=== PATIENT | female | born 1955 | race Caucasian/White ===

== ENCOUNTER → 2019-04-29 | Outpatient (CLI) | payer BC ==
--- NOTE | 2019-04-30 17:30 | RAD ---
DATE: 04/29/2019 EXAM: MAMMO RISHI SCREENING BILATERAL HISTORY: Routine screening COMPARISON: None This study was interpreted with the benefit of Computerized Aided Detection (CAD). Breast Density: HETERO The breast parenchyma is heterogenously dense, which could reduce sensitivity of mammography. Breast parenchyma level C. FINDINGS: No suspicious calcifications or distortion. A left subareolar mass is suspected measuring up to 1.1 cm diameter. It is well-circumscribed. No suspicious calcifications. Focal asymmetry of the right upper-outer breast is present. This probably represents glandular tissue. IMPRESSION: Ultrasound evaluation recommended for the right upper-outer breast and left subareolar region. BI-RADS CATEGORY: 0 INCOMPLETE: NEEDS ADDITIONAL IMAGING EVALUATION AND/OR PRIOR MAMMOGRAMS FOR COMPARISON. Ultrasound bilaterally recommended. RECOMMENDED FOLLOW-UP: ADD ADDITIONAL IMAGING PQRS compliance statement: Patient information was entered into a reminder system with a target due date for the next mammogram. Mammography is a sensitive method for finding small breast cancers, but it does not detect them all and is not a substitute for careful clinical examination. A negative mammogram does not negate a clinically suspicious finding and should not result in delay in biopsying a clinically suspicious abnormality. "Our facility is accredited by the [employer] Mammography Program."
== END | disposition home or self-care (01) ==
LOC: MAMMO 11:21
PROVIDERS: ATTEND Family Medicine
DX: Z12.31 Encounter for screening mammogram for malignant neoplasm of breast (principal); N64.89 Other specified disorders of breast
CPT/HCPCS: 77063; 77067

== ENCOUNTER → 2019-05-01 | Outpatient (CLI) | payer BC ==
--- NOTE | 2019-05-01 11:40 | RAD ---
Examination: BREAST BILATERAL History: Abnormal mammogram Comparison/Correlation: 04/29/2019 screening mammographic exam Findings: Ultrasound imaging of the right breast from 9:00 to 12:00 region was performed. Glandular tissue is notable. No mass or cyst. Ultrasound imaging of the left breast in the 3:00 subareolar region was performed. There is a hypoechoic nodule measuring 0.37 cm x 0.33 cm tall by 0.3 cm noted. There is no flow within it. Margins are well-circumscribed and slightly irregular in appearance. Impression: BI-RADS Category 4-suspicious for malignancy. Biopsy of the left subareolar mass by ultrasound guidance should be considered. On 05/01/2019 at 11:36 AM, results were reported to Danny who is a PA in the referring physician's office. Electronically signed by: Jaquan Lozano MD (05/01/2019 11:37 AM) [facility]
== END | disposition home or self-care (01) ==
LOC: US 09:38
PROVIDERS: ATTEND Family Medicine
DX: N63.32 Unspecified lump in axillary tail of the left breast (principal); R92.8 Other abnormal and inconclusive findings on diagnostic imaging of breast
CPT/HCPCS: 76641

== ENCOUNTER → 2019-05-01 | Outpatient (CLI) | payer BC ==
--- NOTE | 2019-05-02 13:53 | RAD ---
MR#: [id number] Date of Study: 05/01/2019 Ordering Physician: GALO GUY, Referring Physician: GALO GUY, Tech: Miriam Carrillo, TYRELL, RVT, RTR APPROVED REPORT Patient Location: OUT-PATIENT Indications Abdominal Bruit Risk Factors PAD Hypertension Grayscale images of the abdominal aorta demonstrate moderate diffuse plaque. There is si gnificant velocity acceleration at the level of the mid abdominal aorta suggestive of a greater than 75% stenosis. There is no obvious aneurysm noted. Duplex Results A/PTransverseLongitudinal Mid Aorta 2.4cm2.1cm2.6cm Distal Aorta 2.6cm1.9cm2.6cm Doppler VelocityWaveform Aorta Mid. 80.4 cm/sec Distal Aorta 569.2 cm/sec Rt. Common Iliac Uqupjl18.5 cm/sec Lt. Common Iliac Artery 95.7 cm/sec Critical Notification Critical Value: Yes Physician Notified <Conclusion> 1. Probable greater than 75% stenosis of the distal abdominal aorta 2. Plan for CT angiography with runoff Signed by : Galo Guy, Electronically Approved : 05/02/2019 09:10:30
--- NOTE | 2019-05-02 14:58 | RAD ---
MR#: [id number] Date of Study: 05/01/2019 Ordering Physician: GALO GUY, Referring Physician: GALO GUY, Tech: Miriam Carrillo, TYRELL, RVT, RTR APPROVED REPORT Patient Location: OUT-PATIENT Indications Uncontrolled HTN Abdominal Bruit Grayscale images of the bilateral kidneys are grossly unremarkable. Spectral waveforms and color Doppler of the proximal mid and distal renal arteries are within normal limits. Renal to aortic ratios are grossly within normal limits. Renal Artery Doppler Right Renal Artery Left Renal Arter y Proximal 138.5/20.4 cm/secProximal 131.3/31.6 cm/sec Mid 132.3/16.3 cm/secMid 77.6/26.1 cm/sec Distal 143.5/45.8 cm/secDistal 80.8/24.2 cm/sec Renal/Aorta Ratio 0.00Renal/Aorta Ratio 0.96 Rt. Segmental A. 30.8/10.1 cm/secLt. Segmental A. 34.1/12.5 cm/sec Renal Measurements RightLeft Kidney Eggbeu79.33 cm 4.05 cmKidney Cqphhc57.53 cm 4.86 cm Right Additional FindingsLeft Additional Findings Critical Notification Critical Value: No <Conclusion> 1. No signfiicant renal artery stenosis. Signed by : Galo Guy, Electronically Approved : 05/02/2019 14:57:41
--- NOTE | 2019-05-02 15:00 | RAD ---
MR#: [id number] Date of Study: 05/01/2019 Ordering Physician: GALO GUY, Referring Physician: GALO GUY, Tech: Miriam Carrillo, TYRELL, RVT, RTR APPROVED REPORT Patient Location: OUT-PATIENT Laterality:Bilateral Indications Dizziness and Vertigo HTN Risk Factors Grayscale images of the bilateral carotid vessels demonstrates mild intimal hyperplasia. On the right side there is likely occlusion of the mid and distal internal carotid artery. The verteb ral velocities are antegrade. No significant external carotid disease is noted. On the left side there is likely greater than 70% stenosis involving the proximal internal carotid ar matthew. There is some tortuosity to the vessel at the level of interrogation and this may partially con tributed to the elevated velocities. The ICA to CCA ratio is elevated on the left side. The vertebral velocity is antegrade. Doppler Spectral Velocity Analysis Right Left pCCA 58/10 cm/spCCA 89/27 cm/s mCCA 60/14 cm/smCCA 81/33 cm/s dCCA 54/16 cm/sdCCA 70/23 cm/s Bulb 42/11 cm/sBulb 104/36 cm/s ECA 112/24 cm/sECA 95/19 cm/s pICA 50/10 cm/spICA 253/68 cm/s Coleen Coleen 142/56 cm/s dICA dICA 90/34 cm/s Vert. 46/18 cm/sVert. 44/17 cm/s ICA/CCA 0.84ICA/CCA 3.13 Critical Notification Critical Value: Yes Physician Notified <Conclusion> 1. Probable occlusion of the right ICA and greater than 70% stenosis of the left ICA. Signed by : Galo Guy, Electronically Approved : 05/02/2019 14:59:47
== END | disposition home or self-care (01) ==
LOC: US 09:05
PROVIDERS: ATTEND Internal Medicine Cardiovascular Disease
DX: I77.3 Arterial fibromuscular dysplasia (principal); I10 Essential (primary) hypertension
CPT/HCPCS: 76770; 93880; 93975

== ENCOUNTER → 2019-05-19 | Outpatient (CLI) | payer BC ==
[~2019-05-19] MED LIST: IOHEXOL 350 MG/ML 100 ML VIAL. IV ONE
--- NOTE | 2019-05-20 10:29 | RAD ---
Examination: CT ANGIO ABD ILEO/FEMOR RUNOFF History: Aortic stenosis Comparison/Correlation: None Findings: Axial images of the abdomen, pelvis, and lower extremities were obtained following IV contrast according to arteriography protocol. Sagittal and coronal reformatted images were provided. Maximum intensity projection images were provided. Minimal linear atelectasis involving the lingula is evident. Moderate size hiatal hernia is present. Spleen, pancreas, adrenal glands, and gallbladder fossa are unremarkable on arterial phase images provided. Left renal inferior pole scarring is suggested. Kidneys are otherwise unremarkable. The liver is mildly enlarged with length 18.8 cm. Calcific involvement of the celiac artery origin is present without significant stenosis. 50 percent stenosis of the superior mesenteric artery is evident at its origin and proximal 0.4 cm extent. Inferior mesenteric artery opacifies with contrast. A very short segment of high-grade stenosis of the very proximal aspect suspected. Less than 50 percent stenosis of the right superior main renal arteries present. Less than 50 percent stenosis of the more inferior right renal artery is also present. Less than 50 percent stenosis of the single left main renal artery origin noted. Atherocalcific involvement of the distal infrarenal abdominal aorta is identified for a length of 2.5 cm. Linear densities which may represent focal dissection flaps or possibly plaque within this region are noted. Luminal narrowing due to the anterolisthesis may represent focal dissection flaps at this level with diameter up to 0.2 cm anteroposterior is evident at this level. The aortic bifurcation and iliac arteries are widely patent. There is minimal scattered atherosclerotic calcification involvement without luminal narrowing. Common femoral arteries, superficial femoral arteries, deep femoral arteries, popliteal arteries and arteries of the distal lower extremities to the proximal hindfoot region opacify with contrast and are patent without significant stenoses. Evaluation of the knee right popliteal artery is however limited due to streak artifact as a result of a right knee joint prosthesis. Incidental note is made of moderate L4-5 and L5-S1 disc space narrowing. Left supra-acetabular bone island appears to be present. Impression: Narrowing of the infrarenal abdominal aortic lumen distally is noted which may be due to focal atheromatous involvement or focal dissection flaps is noted for a short segment. High-grade stenosis involving the right proximal inferior mesenteric artery suspected. Approximately 50 percent stenosis of the superior mesenteric artery proximally is noted. Hiatal hernia. Excellent opacification of the visualized lower extremity arterial vasculature without significant stenosis. Electronically signed by: Jaquan Lozano MD (05/20/2019 10:26 AM) [facility]
== END | disposition home or self-care (01) ==
LOC: CT 09:06
PROVIDERS: ATTEND Internal Medicine Cardiovascular Disease
DX: I77.1 Stricture of artery (principal); M48.07 Spinal stenosis, lumbosacral region; I73.9 Peripheral vascular disease, unspecified
CPT/HCPCS: 75635; Q9967

== ENCOUNTER → 2020-04-15 | Outpatient (CLI) | payer BC ==
[2020-04-15] MEDS: IOHEXOL 350 MG/ML 100 ML VIAL. IV ONE (08:40)
--- NOTE | 2020-04-15 12:25 | RAD ---
PROCEDURE: CT ANGIOGRAPHY ABDOMEN INDICATION: Reason: AORTIC DISSECTION / Spl. Instructions: / History: . TECHNIQUE: The abdomen was scanned using spiral technique prior to and following intravenous contrast enhancement. Source images are evaluated in addition to 3-D angiographic reconstructions performed on an independent workstation. All CT scans performed at this facility utilize dose reduction techniques as appropriate to the exam, including the following: Automatic Exposure Control and adjustment of the mA and/or kV according to patient size (this includes techniques or standardized protocols for targeted exams). CONTRAST: Administered COMPARISON: 05/19/2019 FINDINGS: Previously reported 2.5 cm long dissection flap in the mid abdominal aorta (best illustrated on sagittal image 64 series 7, images 51 and 52 of axial series 4, and coronal image 71 of series 6) is again evident below the renal arteries (of which there are 2 right renal arteries and a single left renal artery). This is unchanged in the interval with no evidence of an aortic aneurysm. The true luminal diameter measures 0.3 cm. No interval increase in diameter of the outer wall abdominal aorta which measures 1.3 cm. No periaortic soft tissue stranding or fluid. Bilateral common iliacs and imaged external and internal iliac arteries are widely patent. Nonvascular findings include a moderate size hiatal hernia, mildly enlarged liver measuring 18.5 cm craniocaudal extent, and findings of bilateral renal cortical scarring. IMPRESSION: Stable infrarenal abdominal aortic focal dissection without evidence of leak, aneurysm development, or progression in the dissection flap. Electronically signed by: Kierra Joyner MD (04/15/2020 12:22 PM) [id number]
== END | disposition home or self-care (01) ==
LOC: CT 08:20
PROVIDERS: ATTEND Internal Medicine Cardiovascular Disease
DX: I71.02 Dissection of abdominal aorta (principal)
CPT/HCPCS: 74175; Q9967

== ENCOUNTER → 2020-05-05 | Outpatient (CLI) | payer BC ==
--- NOTE | 2020-05-05 17:26 | RAD ---
BILATERAL SCREENING MAMMOGRAM History: Routine screening. Comparison: 04/29/2019. Technique: Routine bilateral digital mammogram views were obtained. Findings: Breast Tissue Density C : The breasts are heterogeneously dense, which may obscure small masses. There are no dominant masses, suspicious microcalcifications, or architectural distortion. Biopsy clip marker involves the anterior left breast. IMPRESSION: No mammographic evidence of malignancy. Recommend routine screening. BI-RADS category 1: Negative. The images were reviewed with computer aided detection. Patient information is entered into the reminder system with a target due date for the next screening mammogram. Mammography is the most sensitive method for finding small breast cancers, but it does not detect them all and is not a substitute for careful clinical examination. A negative mammogram does not negate a clinically suspicious finding and should not result in delay in biopsying a clinically suspicious abnormality. "Our facility is accredited by the [employer] Mammography Program." Electronically signed by: Jaquan Lozano MD (05/05/2020 5:23 PM) [id number]
== END | disposition home or self-care (01) ==
LOC: MAMMO 13:51
PROVIDERS: ATTEND Family Medicine
DX: Z12.31 Encounter for screening mammogram for malignant neoplasm of breast (principal)
CPT/HCPCS: 77067

== ENCOUNTER → 2020-10-28 | Outpatient (CLI) | payer BC ==
--- NOTE | 2020-10-28 13:59 | RAD ---
MR#: [id number] Date of Study: 10/28/2020 Ordering Physician: GALO GUY, Referring Physician: NAUN HSU Tech: ASHWIN Melvin APPROVED REPORT Test Type: Exercise Stress Nurse/Tech: ASHWIN Melivn Test Indications: PAD HTN Cardiac History: none Medications: see EHR Medical History: see EHR Resting ECG: SR with PVCs Resting Heart Rate: 68 bpm Resting Blood Pressure: 173/80mmHg Pretest Chest Pain: None Nurse/Tech Notes Consent: The procedure was explained to the patient in lay terms. Informed consent was witnessed. Mahesh eout was entered into [employer]. History and Stress Test performed by ASHWIN Melvin POST EXERCISE Reason for Termination: Fatigue Target HR: 133 Max HR: 171 bpm 128% of Maximum Predicted HR: bpm Exercise duration: 5 min:sec, Stage Exercise capacity: 7METs Max Blood Pressure: 208/71mmHg Blood Pressure response to exercise: Normal blood pressure response during stress. Chest Pain: No. Arrhythmia: No. ST Change: No. INTERPRETATION Stress EKG Conclusion: Baseline EKG showed sinus rhythm. No ischemic changes at peak stress. No arr hythmias. Imaging Protocol IMAGE PROTOCOL: Rest Tc-99m/stress Tc-99m 1 day Rest: Stress: Viability: Radiopharm.Tc99m LvbwyqgclPj60j Sestamibi Vrsn34qBm 33mCi Duration 15min. 10min. Img Date 10/28/2020 10/28/2020 Inj-Img Lrur88ech. 60min. Rest Admin Site:IV - Right WristAdministrator: ASHWIN Melvin Stress Admin Site: IV - Right WristAdministrator: ASHWIN Melvin STRESS DATA End Diast. Vol.66.0mlAv. Heart Rate95.0bpm End Syst. Vol.11.0mlCO Index BSA0.0L/min Myocardial Jsfo706.0gEject. Ypwlivmv20.0% Stress Rates Pk. Fill Rate2.84EDV/secLVtime Pk. Fill 105.78msec Pk. Empty Rate4.85ESV/secLVtime Pk. Tcgsi985.13msec 1/3 Pk. Fill1.59EDV/sec Stress Scores Regional WT1.00Summed WT3.00 Regional WM0.00Summed WM0.00 Study quality was good. Left Ventricular size was Normal at Rest and Stress. Lung uptake was . Left Ventricular ejection fraction is 83%. The rest and stress images show normal perfusion, normal contraction and thickening. LV Perf. Quant 17 Seg. SSS0.00 17 Seg. SRS0.00 17 Seg. SDS0.00 Stress Defect Extent (% LAD)0.00Rest Defect Extent (% LAD)0.00Rev. Defect Extent (% LAD)0.00 Stress Defect Extent (% LCX) 0.00Rest Defect Extent (% LCX)0.00Rev. Defect Extent (% LCX)0.00 Stress Defect Extent (% RCA)0.00Rest Defect Extent (% RCA)0.00Rev. Defect Extent (% RCA)0.00 Stress Defect Extent (% CHELSEY)0.00Rest Defect Extent (% CHELSEY)0.00Rev. Defect Extent (% CHELSEY)0.00 Conclusion 1. Treadmill exercise cardioisotope stress test did not show any evidence of ischemia or infarct. 2. Normal left ventricular systolic function with ejection fraction calculated at 83%. 3. Low risk for cardiac events. Signed by : Que Tobin, Electronically Approved : 10/28/2020 13:59:23
== END ==
LOC: NM 08:06
PROVIDERS: ATTEND Internal Medicine Cardiovascular Disease
DX: Z01.810 Encounter for preprocedural cardiovascular examination (principal)
CPT/HCPCS: 78452; 93017; A9500; 96376

== ENCOUNTER → 2020-11-01 | Outpatient (CLI) | payer BC ==
--- NOTE | 2020-11-01 13:16 | RAD ---
MR#: [id number] Date of Study: 11/01/2020 Ordering Physician: GALO ATKINSON, Referring Physician: GALO ATKINSON, Tech: Kayla Rao RVT,MS APPROVED REPORT Patient Location: OUT-PATIENT Laterality:Bilateral Indications Carotid stenosis Risk Factors Hypertension: Grayscale images of the bilateral carotid vessels demonstrates moderate diffuse atherosclerotic plaqu e on the left and significant heavy plaque burden on the right. On the right side the mid internal carotid artery is occluded. The vertebral artery demonstrates ant egrade flow. The external carotid artery appears to be patent with normal velocities. On the left v elocities are notable for moderate 50 to 69% stenosis involving the proximal and mid internal carotid artery. The ICA to CCA ratios are within normal limits. The left vertebral velocity is antegrade. Doppler Spectral Velocity Analysis Right Left pCCA 60/14 cm/spCCA 71/25 cm/s mCCA 57/14 cm/smCCA 66/26 cm/s dCCA 45/12 cm/sdCCA 99/38 cm/s Bulb Bulb 83/33 cm/s ECA 114/27 cm/sECA 124/24 cm/s pICA 45/5 cm/spICA 143/52 cm/s Coleen Coleen 141/46 cm/s dICA dICA 99/39 cm/s Vert. 69/26 cm/sVert. 64/25 cm/s ICA/CCA ICA/CCA 2.01 Critical Notification Critical Value: No <Conclusion> 1. Occluded right internal carotid artery, moderate left internal carotid artery stenosis. Signed by : Galo Atkinson, Electronically Approved : 11/01/2020 13:16:38
--- NOTE | 2020-11-02 11:00 | CARD ---
MR#: [id number] Date of Study: 11/01/2020 Ordering Physician: GALO ATKINSON, Referring Physician: GALO ATKINSON, Tech: Miriam Sena, [facility] APPROVED REPORT EXAM: Two-dimensional and M-mode echocardiogram with Doppler and color Doppler. Other Information Quality : AverageHR: 75bpm INDICATION Pre-Op RISK FACTORS Hypertension Hyperlipidemia 2D DIMENSIONS Left Atrium(2D)2.9 (1.6-4.0cm)IVSd0.9 (0.7-1.1cm) Aortic Root(2D)3.0 (2.0-3.7cm)LVDd4.1 (3.9-5.9cm) LVOT Diameter2.0 (1.8-2.4cm)PWd0.9 (0.7-1.1cm) LVDs3.0 (2.5-4.0cm)FS (%) 25.8 % SV37.6 mlLVEF(%)51.2 (>50%) Aortic Valve AoV Peak Salo.146.5cm/sAoV VTI27.4cm AO Peak GR.8.6mmHgLVOT Peak Salo.105.1cm/s LVOT VTI 20.96cmAO Mean GR.5mmHg TEMO (VMAX)2.29qm0WDB (VTI)2.38cm2 Mitral Valve MV E Vtjksocj64.8cm/sMV DECEL BVXO212ze MV A Bvjguwxj908.4cm/sE/A Ratio0.6 Pulmonary Valve PV Peak Afmewxce66.9cm/sPV Peak Grad.2mmHg Tricuspid Valve TR P. Kiwauvhc766sl/sRAP YKFERZNT7leRh TR Peak Gr.24mmHg Pulmonary Vein S1 Wydoqveb84.5cm/sD2 Rhsukxav56.7cm/s LEFT VENTRICLE The left ventricle is normal size. There is normal left ventricular wall thickness. The left ventricu lar systolic function is normal and the ejection fraction is within normal range. The Ejection Fracti on is 50-55%. There is normal LV segmental wall motion. Transmitral Doppler flow pattern is Grade I-a bnormal relaxation pattern. RIGHT VENTRICLE The right ventricle is normal size. There is normal right ventricular wall thickness. The right ventr icular systolic function is normal. ATRIA The left atrium size is normal. The right atrium size is normal. The interatrial septum is intact wit h no evidence for an atrial septal defect or patent foramen ovale as noted on 2-D or Doppler imaging. AORTIC VALVE The aortic valve is normal in structure and function. Doppler and Color Flow revealed no significant aortic regurgitation. There is no significant aortic valvular stenosis. Calculated aortic valve area is 2.5 cm2 with maximum pressure gradient of 9 mmHg and mean pressure gradient of 5 mmHg. MITRAL VALVE The mitral valve is normal in structure and function. There is no evidence of mitral valve prolapse. There is no mitral valve stenosis. Doppler and Color-flow revealed trace mitral regurgitation. TRICUSPID VALVE The tricuspid valve is normal in structure and function. Doppler and Color Flow revealed trace tricus pid regurgitation with an estimated PAP of 27 mmHg. There is no tricuspid valve stenosis. PULMONIC VALVE The pulmonic valve is not well visualized. Doppler and Color Flow revealed no pulmonic valvular regur gitation. There is no pulmonic valvular stenosis. GREAT VESSELS The aortic root is normal in size. The IVC is normal in size and collapses >50% with inspiration. PERICARDIAL EFFUSION There is no evidence of significant pericardial effusion. Critical Notification Critical Value: No <Conclusion> The left ventricular systolic function is normal and the ejection fraction is within normal range. Th e Ejection Fraction is 50-55%. There is normal LV segmental wall motion. Signed by : Galo Atkinson, Electronically Approved : 11/02/2020 10:59:19
== END ==
LOC: US 08:42
PROVIDERS: ATTEND Internal Medicine Cardiovascular Disease
DX: Z01.810 Encounter for preprocedural cardiovascular examination (principal); I65.23 Occlusion and stenosis of bilateral carotid arteries
CPT/HCPCS: 93306; 93880

== ENCOUNTER → 2021-11-16 | Outpatient (CLI) | payer BC ==
--- NOTE | 2021-11-16 13:08 | RAD ---
INDICATION: 66 years of age asymptomatic female patient presents for screening mammography. No person al or family history of breast cancer. TECHNIQUE: Full field craniocaudal and mediolateral oblique images of both breasts were obtained usi ng digital technique with tomosynthesis and also analyzed with computer-aided detection software. COMPARISON: Prior mammographic imaging dating back to 04/29/2019. BREAST COMPOSITION: Category C: The breast tissue is heterogeneously dense, which could obscure detec tion of small masses. FINDINGS: Right breast: Focal asymmetry at the 12:00 position, posterior depth. No suspicious architectural dis tortion or suspicious consolidations. Left breast: No suspicious masses, microcalcifications or architectural distortion is present to sugg est malignancy. Biopsy clip in the lower outer quadrant is redemonstrated. The visualized axillae are unremarkable. IMPRESSION: Indeterminate focal asymmetry at the 12:00 position, posterior depth within the right sirena ast. Additional evaluation with diagnostic right breast mammogram with spot compression and followed up with possible right breast ultrasound. RECOMMENDATION: Annual screening mammography is recommended, unless clinically indicated sooner based on symptoms or change in physical exam. BIRADS 0: INCOMPLETE - NEED ADDITIONAL IMAGING EVALUATION AND/OR PRIOR MAMMOGRAMS FOR COMPARISON. This study was interpreted with the benefit of Computerized Aided Detection (CAD). ?Your patient's mammogram demonstrates that she has dense breast tissue (breast density category C or D), which could hide abnormalities, and if she has other risk factors for breast cancer that have be en identified, she might benefit from supplemental screening tests that may be suggested by you as he r ordering physician. Dense breast tissue, in and of itself, is a relatively common condition. Theref ore, this information is not provided to cause undue concern, but rather to raise your awareness and to promote discussion with your patient regarding the presence of other risk factors, in addition to dense breast tissue. Your patient's mammography results will be sent to her. Patient information is entered into the reminder system with a target due date for the next screening mammogram. Mammography is the most sensitive method for finding small breast cancers, but it does not detect the m all and is not a substitute for careful clinical examination. A negative mammogram does not negate a clinically suspicious finding and should not result in delay in biopsying a clinically suspicious a bnormality. "Our facility is accredited by the [employer] Mammography Program." Electronically signed by: Antony Field DO (11/16/2021 1:05 PM) [id number]
== END ==
LOC: MAMMO 10:33
PROVIDERS: ATTEND Family Medicine
DX: Z12.31 Encounter for screening mammogram for malignant neoplasm of breast (principal)
CPT/HCPCS: 77063; 77067